=== PATIENT | female | born 1970 | race Caucasian/White ===

== ENCOUNTER → 2016-06-21 | Outpatient (CLI) | payer MEDICARE, MEDICAID ==
--- NOTE | 2016-06-21 19:47 | XA ---
Exam Date: 06/21/16 Patient's Age: 46 HEIGHT: 65.0 in. WEIGHT: 120.0 lbs. INDICATIONS: Back pain, family history of osteoporosis, hypothyroid. FRACTURES: TREATMENTS: Armor (thyroid med) ASSESSMENT: The BMD measured at Femur Total Mean s 0.766 g/cm2 with a T-score of -1.9. This patient is considered osteopenic according to World Health Organization ( WHO) criteria. Bone density is between 10% and 25% below young normal. Fracture risk is moderate. Treatment is advised. The BMD measured at Femur Troch Mean is 0.631 g/cm2 with a T-score of -1.9 is considered moderately low. Fracture risk is moderate. Treatment is advised if there are other risk factors. RESULTS: Site Region Age Classification T-Score BMD AP Spine L1-L4 46.3 Osteopenia -1.2 1.046 g/cm2 Dual Femur Neck Mean 46.3 Osteopenia -1.6 0.822 g/cm2 Dual Femur Troch Mean 46.3 N/A -1.9 0.631 g/cm2 Dual Femur Total Mean 46.3 Osteopenia -1.9 0.766 g/cm2 World Health Organization - Criteria for post-menopausal, women: Normal: T-Score at or above -1 SD Osteopenia: T-Score between -1 and -2.5 SD Osteoporosis: T-Score at or below -2.5 SD RECOMMENDATION: Pharmacologic treatment recommendations & Initiate pharmacologic treatment: - In those with hip or vertebral (clinical or asymptomatic) fractures - In those with T -scores <-2.5 at the femoral neck, total hip, or lumbar spine by DXA - In postmenopausal women and men age 50 and older with low bone mass (T-score between -1.0 and -2.5, osteopenia) at the femoral neck, total hip, or lumbar spine by DXA and a 10-year hip fracture probability >3 % or a 10-year major osteoporosis-related fracture probability >20% based on the [place]-adapted WHO absolute fracture risk model (Fracture Risk Algorithm (FRAX); www. NOF.org and www.shef.ac.uk/FRAX) FOLLOW UP: People with diagnosed cases of osteoporosis or at high risk for fracture should have regular bone mineral density tests. For patients eligible for Medicare, routine testing is allowed once every 2 years. The testing frequency can be increased to 1 year for patients who have rapidly progressing disease, those who are reviewing or discontinuing medial therapy to restore bone mass, or have additional risk factors. People with diagnosed cases of osteoporosis or osteopenia should be regularly tested for bone mineral density. For patient eligible for Medicare, routine testing is allowed once every 2 years. The testing frequency can be increased to 1 year for patients who have rapidly progressing disease, or for those who are receiving medial therapy to restore bone mass. [facility] -- [place] [phone] - FAX: [phone] GRIS
== END ==
LOC: MW.DI 11:00
PROVIDERS: ATTEND Nurse Practitioner Women's Health
DX: M81.0 Age-related osteoporosis without current pathological fracture (principal)
CPT/HCPCS: 77080; 77080-26

== ENCOUNTER 2020-01-29 18:17 | Emergency (ER) | payer OTHER, BC, MEDICARE ==
--- NOTE | 2020-01-29 19:49 | EDM.PDOC ---
ED HPI GENERAL MEDICAL PROBLEM - General Chief Complaint: Upper Extremity Injury/Pain Stated Complaint: LT WRIST INJURY Time Seen by Provider: 01/29/20 19:47 Source of Information: Reports: Patient History Limitations: Reports: No Limitations - History of Present Illness INITIAL COMMENTS - FREE TEXT/NARRATIVE: HISTORY AND PHYSICAL: History of present illness: Patient is a 49-year-old female who presents to the emergency room with complaints of left wrist pain post fall. She states she tripped while at work and fell with an outstretched hand and now has pain to the anterior aspect of the left wrist. She states in April 2019 she did have a fracture which required surgery. She denies hitting her head or having any loss of consciousness. Denies any other extremity involvement. Offers no systemic complaints. Review of systems: As per history of present illness and below otherwise all systems reviewed and negative. Past medical history: As per history of present illness and as reviewed below otherwise noncontributory. Surgical history: As per history of present illness and as reviewed below otherwise noncontributory. Social history: See social history for further information Family history: As per history of present illness and as reviewed below otherwise noncontributory. Physical exam: General: Well developed and well nourished 49-year-old female. Alert and orientated x 3. Nontoxic in appearance and in no acute distress. Vital signs are stable and have been reviewed by me. Nursing notes were reviewed. HEENT: Atraumatic, normocephalic, pupils equal and reactive bilaterally, negative for conjunctival pallor or scleral icterus, mucous membranes moist, trachea midline. No drooling or trismus noted. No meningeal signs. No hot potato voice noted. Lungs: Clear to auscultation, breath sounds equal bilaterally. Normal work of breathing, no accessory muscles used. Heart: S1S2, regular rate and rhythm without overt murmur Abdomen: Soft, nondistended, nontender. Skin: Intact, warm, dry. No lesions or rashes noted. Hematologic: No petechiae or purpra. Mucosa appropriate color and normal nail bed color and refill. Extremities: Pain with palpation of the radial and ulnar aspect of the left wrist. Good flexion and extension of the hand and wrist. Strong radial pulse. Cap refill less than 3 seconds. Otherwise moves all extremities per self without difficulty or deficits, negative for cords or calf pain. Neurovascular unremarkable. Neuro: Awake, alert, oriented. Cranial nerves II through XII unremarkable. Cerebellum unremarkable. Motor and sensory unremarkable throughout. Exam nonfocal. Psychiatric: Mood and affect are appropriate. Normal thought process. Answering questions appropriately. Notes: X-ray shows chronic fractures of the distal radius and ulna with plate and screw fixation. Possible injury to the scapholunate joint with mildly increased interspace. I have spoken with the patient/caregiver and discussed today's findings, in addition to providing specific details for plan of care. Reassessment at the time of disposition demonstrates that the patient is in no acute distress. I did offer to put her in a wrist splint, she states she has a Velcro splint at home that she would prefer to use from her previous surgery. The patient is stable for discharge, counseling was provided and we discussed in great detail signs and symptoms that would prompt them to return to the Emergency Department. Medication, follow up with the orthopedic provider in a few days and supportive care measures were reviewed and discussed. Voices understanding and is agreeable to plan of care. Denies any further questions or concerns at this time. Diagnostics: X-ray Therapeutics: Declines Prescription: Tramadol Impression: Wrist sprain Plan: 1. Rest, ice, elevate the affected extremity. Please wear the splint you have at home as directed. 2. Tylenol and/or Ibuprofen as needed for pain management. Tramadol for moderate to severe pain as needed. 3. Follow up with the Orthopedic provider as we discussed. Return to the ED as needed and as discussed. Definitive disposition and diagnosis as appropriate pending reevaluation and review of above. L wrist Pain Score (Numeric/FACES): 7 - Related Data Allergies Allergy/AdvReac Type Severity Reaction Status Date / Time No Known Allergies Allergy Verified 01/29/20 19:56 Home Meds: Home Meds Potassium 80 meq PO DAILY 11/20/13 [History] Sevelamer Carbonate [Renvela] 800 mg PO TID 11/20/13 [History] Thyroid [[place] Thyroid] 15 mg PO DAILY 11/20/13 [History] calcitrioL [Rocaltrol] 25 mcg PO DAILY 11/20/13 [History] traZODone HCl [Trazodone HCl] 400 mg PO DAILY 05/16/18 [History] traMADol [Ultram] 50 mg PO Q4H PRN #15 tab 01/29/20 [Rx] Past Medical History HEENT History: Reports: None Cardiovascular History: Reports: None Respiratory History: Reports: None Gastrointestinal History: Reports: None Genitourinary History: Reports: None [employer] OPERATOR History: Reports: None Musculoskeletal History: Reports: None Neurological History: Reports: Neuropathy, Peripheral Psychiatric History: Reports: None Endocrine/Metabolic History: Reports: Hypoparathyroidism, Hypothyroidism Hematologic History: Reports: None Immunologic History: Reports: None Oncologic (Cancer) History: Reports: None Dermatologic History: Reports: None - Past Surgical History Head Surgeries/Procedures: Reports: None HEENT Surgical History: Reports: None Cardiovascular Surgical History: Reports: None Respiratory Surgical History: Reports: None GI Surgical History: Reports: None Female Surgical History: Reports: None Endocrine Surgical History: Reports: None Neurological Surgical History: Reports: None Musculoskeletal Surgical History: Reports: None Oncologic Surgical History: Reports: None Dermatological Surgical History: Reports: None Social & Family History - Family History Family Medical History: Noncontributory - Caffeine Use Caffeine Use: Reports: None Review of Systems - Review of Systems Review Of Systems: Comprehensive ROS is negative, except as noted in HPI. ED EXAM, GENERAL - Physical Exam Exam: See Below (See dictation) Course - Vital Signs Last Recorded V/S: Last Vital Signs Temp 97.3 F 01/29/20 19:51 Pulse 75 01/29/20 19:51 Resp 17 01/29/20 19:51 BP 133/80 01/29/20 19:51 Pulse Ox 96 01/29/20 19:51 Departure - Departure Time of Disposition: 20:01 Disposition: Home, Self-Care 01 Clinical Impression: Wrist sprain Qualifiers: Encounter type: initial encounter Laterality: left Qualified Code(s): S63.502A - Unspecified sprain of left wrist, initial encounter - Discharge Information Prescriptions: traMADol [Ultram] 50 mg PO Q4H PRN #15 tab PRN Reason: Pain Instructions: Wrist Splint, Adult, [id number] Referrals: PCP,None [Primary Care Provider] - Forms: ED Department Discharge, ED Return to Work/School Form Additional Instructions: The following information is given to patients seen in the emergency department who are being discharged to home. This information is to outline your options for follow-up care. We provide all patients seen in our emergency department with a follow-up referral. The need for follow-up, as well as the timing and circumstances, are variable depending upon the specifics of your emergency department visit. If you don't have a primary care physician on staff, we will provide you with a referral. We always advise you to contact your personal physician following an emergency department visit to inform them of the circumstance of the visit and for follow-up with them and/or the need for any referrals to a consulting specialist. The emergency department will also refer you to a specialist when appropriate. This referral assures that you have the opportunity for follow-up care with a specialist. All of these measure are taken in an effort to provide you with optimal care, which includes your follow-up. Under all circumstances we always encourage you to contact your private physician who remains a resource for coordinating your care. When calling for follow-up care, please make the office aware that this follow-up is from your recent emergency room visit. If for any reason you are refused follow-up, please contact the [facility] at and asked to speak to the emergency department charge nurse. [facility] [address] [place] [address] [place] [address] Thank you for choosing the [facility] emergency department in [place] for your medical needs today. It was a pleasure caring for you. Today you were seen in the emergency department for wrist pain. 1. Rest, ice, elevate the affected extremity. Please wear the splint you have at home as directed. 2. Tylenol and/or Ibuprofen as needed for pain management. Tramadol for moderate to severe pain as needed. 3. Follow up with the Orthopedic provider as we discussed. Return to the ED as needed and as discussed. Sepsis Event Note (ED) - Focused Exam Vital Signs: Vital Signs Temp Pulse Resp BP Pulse Ox 01/29/20 19:51 97.3 F 75 17 133/80 96
--- NOTE | 2020-01-29 19:55 | CR ---
INDICATION: Injury, fall onto open hand. COMPARISON: 05/16/2018. TECHNIQUE: Three views of the right wrist. FINDINGS: Plate and screw fixation for previously demonstrated distal radius fracture. Chronic ulnar styloid fracture. No definite dislocation. The scaphoid lunate interval appears slightly prominent and more notable than on the prior. No definite acute fracture. Soft tissue swelling about the wrist. No definite perihardware lucency. IMPRESSION: 1. Chronic fractures of the distal radius and ulna with plate and screw fixation of the distal radius fracture. 2. Possible injury to the scapholunate joint with mildly increased interspace. Dictated by Shahbaz Rodriguez MD @ Jan 29 2020 7:48PM (Electronically Signed)
== END 2020-01-29 20:29 | disposition home or self-care (01) ==
LOC: MW.ED 18:17
DX: S63.502A Unspecified sprain of left wrist, initial encounter (principal); G62.9 Polyneuropathy, unspecified; E03.9 Hypothyroidism, unspecified; Z79.899 Other long term (current) drug therapy; W01.0XXA Fall on same level from slipping, tripping and stumbling without subsequent striking against object, initial encounter; Y99.0 Civilian activity done for income or pay
CPT/HCPCS: 73110-26-LT; 73110-LT; 99283

== ENCOUNTER 2021-04-21 08:12 | Day surgery (SDC) | payer BC, MEDICARE ==
[~2021-04-21 08:12] MED LIST: Lactated Ringers 1,000 ML IV SCH; fentaNYL 100 MCG/2 ML SDV ONE; propofoL 50 ML ONE
[2021-04-21] MEDS ORDERED: Lactated Ringers 1,000 ML IV SCH (08:30)
--- NOTE | 2021-04-21 09:06 | PCM.PREANE ---
Preanesthetic Assessment - Procedure Proposed Procedure: EGD, Colonoscopy - Anesthesia/Transfusion/Family Hx Anesthesia History: Prior Anesthesia Without Reaction Other Type of Anesthesia Reaction Comment: states is a "hard IV stick" Family History of Anesthesia Reaction: No Transfusion History: No Prior Transfusion(s) - Review of Systems General: No Symptoms Pulmonary: No Symptoms Cardiovascular: No Symptoms (H/o A-S defect, repaired 1989 no problems since) Gastrointestinal: No Symptoms (GERD well controlled) Neurological: Seizure (h/o sz related to meds last over a year ago not on any anti-sz meds) Other: Reports: Thyroid Problems (Hypothyroid), Depression (Pt has Bipolr d/o) - Physical Assessment NPO Status Date: 04/20/21 NPO Status Time: 21:30 Vital Signs: Last Vital Signs Temp 96.3 F L 04/21/21 08:20 Pulse 88 04/21/21 08:20 Resp 15 04/21/21 08:20 BP 113/75 04/21/21 08:20 Pulse Ox 95 04/21/21 08:20 Height: 5 ft 5 in Weight: 90.265 kg ASA Class: 2 Mental Status: Alert & Oriented x3 Airway Class: Mallampati = 2 Dentition: Reports: Normal Dentition, Dentures Thyro-Mental Finger Breadths: 3 Mouth Opening Finger Breadths: 3 ROM/Head Extension: Full Lungs: Clear to Auscultation, Normal Respiratory Effort Cardiovascular: Regular Rate, Regular Rhythm - Lab Values: Laboratory Last Values Urine HCG, Qual NEGATIVE (NEGATIVE) 04/21/21 08:30 - Allergies Allergies/Adverse Reactions: Allergies Allergy/AdvReac Type Severity Reaction Status Date / Time No Known Allergies Allergy Verified 12/15/20 14:57 - Anesthesia Plan Free Text/Narrative:: Propofol sedation - Acknowledgements Anesthesia Type Planned: General Anesthesia Pt an Appropriate Candidate for the Planned Anesthesia: Yes Alternatives and Risks of Anesthesia Discussed w Pt/Guardian: Yes Pt/Guardian Understands and Agrees with Anesthesia Plan: Yes PreAnesthesia Questionnaire HEENT History: Other HEENT History: glasses, top and bottom denture Cardiovascular History: Reports: Other (See Below) Other Cardiovascular History: "born with murmur", hx atrial septal defect Respiratory History: Reports: None Gastrointestinal History: Reports: GERD Genitourinary History: Reports: Other (See Below) Other Genitourinary History: frequent urination, cyst on right kidney [employer]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 Musculoskeletal History: Reports: Back Pain, Chronic, Fracture, Fibromyalgia, Neck Pain, Chronic Neurological History: Reports: Neuropathy, Peripheral Psychiatric History: Reports: ADD, Anxiety, Bipolar, Depression, Eating Disorders Endocrine/Metabolic History: Reports: Hypothyroidism, Obesity/BMI 30+ Other Endocrine/Metabolic History: "hyperparathyroidism" Hematologic History: Reports: Anemia Immunologic History: Reports: None Oncologic (Cancer) History: Reports: None Dermatologic History: Reports: Eczema - Infectious Disease History Infectious Disease History: Reports: Chicken Pox - Past Surgical History Head Surgeries/Procedures: Reports: None HEENT Surgical History: Reports: Naso-Sinus Surgery Cardiovascular Surgical History: Reports: Other (See Below) Other Cardiovascular Surgeries/Procedures: hx of repair of atrial septal defect at age 18 Respiratory Surgical History: Reports: None GI Surgical History: Reports: EGD Female Surgical History: Reports: Other (See Below) Other Female Surgeries/Procedures: hx diagnostic laparoscopy, breast augmentation and removal of implants Endocrine Surgical History: Reports: None Neurological Surgical History: Reports: None Musculoskeletal Surgical History: Reports: ORIF Other Musculoskeletal Surgeries/Procedures:: ORIF L wrist fx Oncologic Surgical History: Reports: None Dermatological Surgical History: Reports: None - SUBSTANCE USE Tobacco Use Status *Q: Never Tobacco User - HOME MEDS Home Medications: Home Meds Sevelamer Carbonate [Renvela] 800 mg PO TID 11/20/13 [History] Thyroid [[place] Thyroid] 90 mg PO DAILY 11/20/13 [History] calcitrioL [Rocaltrol] 0.25 mcg PO TID 11/20/13 [History] traZODone HCl [Trazodone HCl] 4 - 5 tab PO BEDTIME PRN 05/16/18 [History] Dicyclomine [Bentyl] 10 mg PO QID PRN 12/15/20 [History] Etonogestrel [Nexplanon] 1 implant .ROUTE ONETIME 12/15/20 [History] Gabapentin [Neurontin] 4 tab PO BEDTIME 12/15/20 [History] Lactobacillus Combo No.10 [Probiotic] 2 tab PO BEDTIME 12/15/20 [History] Lisdexamfetamine [Vyvanse] 50 mg PO DAILY 12/15/20 [History] Meclizine HCl 25 mg CHEW TID PRN 12/15/20 [History] Metoclopramide HCl 1 - 2 tab PO DAILY 12/15/20 [History] Mirabegron [Myrbetriq] 25 mg PO DAILY 12/15/20 [History] Tolterodine Tartrate [Detrol LA] 4 mg PO BEDTIME 12/15/20 [History] Zolpidem [Ambien] 10 mg PO BEDTIME 12/15/20 [History] Biotin 5,000 mcg PO DAILY 04/17/21 [History] Calcium Carbonate [Calcium] 2 tab PO BID 04/17/21 [History] Cariprazine HCl [Vraylar] 3 mg PO DAILY 04/17/21 [History] FLUoxetine HCl [Fluoxetine HCl] 40 mg PO DAILY 04/17/21 [History] Lysine HCl [l-Lysine] 1,000 mg PO ASDIRECTED PRN 04/17/21 [History] Magnesium 250 mg PO ASDIRECTED 04/17/21 [History] Potassium Chloride 20 meq PO ASDIRECTED PRN 04/17/21 [History] activated charcoaL [Charcocaps] 4 caplet PO ASDIRECTED PRN 04/17/21 [History] - CURRENT (IN HOUSE) MEDS Current Meds: Current Medications Lactated Ringer's (Ringers, Lactated) 1,000 mls @ 125 mls/hr IV ASDIRECTED [facility] Discontinued Medications Fentanyl (Fentanyl 100 Mcg/2 Ml Sdv) Confirm Administered Dose 100 mcg .ROUTE .STK-MED ONE Stop: 04/21/21 08:13 Lactated Ringer's (Ringers, Lactated) 1,000 mls @ 125 mls/hr IV ASDIRECTED [facility] Propofol (Diprivan 50 Ml) Confirm Administered Dose 50 mls @ as directed .ROUTE .STK-MED ONE Stop: 04/21/21 07:35 Lidocaine HCl (Lidocaine 1% 5 Ml Sdv) Confirm Administered Dose 5 ml .ROUTE .STK-MED ONE Stop: 04/21/21 08:13
--- NOTE | 2021-04-21 11:07 | PCM.POSTAN ---
POST ANESTHESIA ASSESSMENT - MENTAL STATUS Mental Status: Alert, Oriented - VITAL SIGNS Vital Signs: Last Vital Signs Temp 96.3 F L 04/21/21 08:20 Pulse 88 04/21/21 08:20 Resp 15 04/21/21 08:20 BP 113/75 04/21/21 08:20 Pulse Ox 95 04/21/21 08:20 - RESPIRATORY Respiratory Status: Respiratory Rate WNL, Airway Patent, O2 Saturation Stable - CARDIOVASCULAR CV Status: Pulse Rate WNL, Blood Pressure Stable - GASTROINTESTINAL GI Status: No Symptoms - PAIN Pain Score: 0 - POST OP HYDRATION Hydration Status: Adequate & Stable
--- NOTE | 2021-04-21 11:16 | PCM48HPAN ---
Post Anesthesia Note - EVALUATION WITHIN 48HRS OF ANESTHETIC Vital Signs in Normal Range: Yes Patient Participated in Evaluation: Yes Respiratory Function Stable: Yes Airway Patent: Yes Cardiovascular Function Stable: Yes Hydration Status Stable: Yes Pain Control Satisfactory: Yes Nausea and Vomiting Control Satisfactory: Yes Mental Status Recovered: Yes Vital Signs: Last Vital Signs Temp 98.1 F 04/21/21 11:02 Pulse 65 04/21/21 11:12 Resp 12 04/21/21 11:12 BP 101/68 04/21/21 11:12 Pulse Ox 100 04/21/21 11:12 - COMMENTS/OBSERVATIONS Free Text/Narrative:: Pt doing well post-op. VSS. No apparent anesthetic complications. Dr. Kory Wing
--- NOTE | 2021-04-21 11:19 | PCM.OPNOTE ---
- General Post-Op/Procedure Note Date of Surgery/Procedure: 04/21/21 Operative Procedure(s): EGD with Biopsies. Colonoscopy with random Biopsies Findings: Gastritis Irregular GE Junction Diverticulosis Dictation number [id number] Pre Op Diagnosis: GERD. loose stools Post-Op Diagnosis: Gastritis. Irregular GE Junction. Diverticulosis Anesthesia Technique: [facility] Primary Surgeon: Yuri Ivy Pathology: Random colon biopsies EGD biopsies Complications: None Condition: Good
--- NOTE | 2021-04-21 12:52 | OR ---
SURGEON: MERCEDES EUCEDA MD DATE OF PROCEDURE: 04/21/2021 PREOPERATIVE DIAGNOSES: 1. Gastroesophageal reflux disease. 2. Loose stools. 3. Gastritis. 4. Slightly irregular GE junction. 5. Diverticulosis. PROCEDURE PERFORMED: Colonoscopy with random biopsies and esophagogastroduodenoscopy with biopsies. PRIMARY SURGEON: Mercedes Euceda MD ANESTHESIA: With anesthesia team. EXTENT OF EGD: To the duodenum. EXTENT OF COLONOSCOPY: To the cecum. BOWEL PREP: Good. LIMITATIONS: None. REASON FOR PROCEDURE: The patient is a pleasant 51-year-old female. She says she thinks she had stomach ulcers in the past. She does take medications for heartburn. She says with the medication, this deals with the heartburn well. She says she had an EGD 7 to 8 years ago that was normal. The patient also is having some loose stools. She says she goes between constipation and loose stools. She says she has loose stools when she binge eats. She has had bulimia since she was 13 years old. She still has it and binges and purges about every 4 days. Loose stools seem to correlate with bingeing and purging. She denies any blood in her stools. PROCEDURE IN DETAIL: Physical examination was performed. The major risks and benefits associated with the procedure were explained to the patient in detail. The patient verbalized understanding and agreement of the same. The patient was then connected to the appropriate monitoring devices and IV started. EKG, pulse, pulse oximetry, blood pressure, and capnography were monitored throughout the entire procedure. Continuous oxygen and sedation were provided by the anesthesiologist. The patient was placed in left lateral decubitus position. Sedation was began. After adequate sedation was achieved, upper endoscope was advanced under direct visualization without difficulty in the upper GI tract. The anatomy and mucosa of the esophagus, GE junction, stomach, pylorus, and duodenum were inspected. Duodenum appeared normal. Scope was brought up to the stomach. Both retrograde and antegrade views of the stomach were done. The patient did have some gastritis with slightly mosaic pattern to the mucosa. I did do biopsies at the antrum and pylorus area to check for H pylori. Also did some random biopsies of the stomach. Scope was brought to the GE junction. GE junction was approximately 38 cm from her incisors. GE junction was slightly irregular. It looks like maybe she might have had some esophagitis in the past. I did do some random biopsies at GE junction. Scope was brought to the stomach. Stomach was de-insufflated. Scope was brought to the esophagus. Esophagus appeared normal. Scope was completely removed and the procedure was terminated. Scope was changed. Now, a rectal exam was performed. No rectal masses or polyps felt. Now, a well- lubricated Olympus colonoscope was inserted in the rectum and advanced under direct visualization to the level of the cecum. Cecum was identified by both visual and anatomic landmarks. Photographs were taken of the cecal cap. Scope was then slowly withdrawn in a circular fashion looking at the color, texture, anatomy, and integrity of mucosa from the cecum to the anal canal. The patient had a little bit of retained stool which was suctioned and irrigated out for an excellent look at the mucosa. Because of her complaint of loose stools, I did do random biopsies throughout the entirety of the colon. The patient did have some scattered diverticulosis throughout the sigmoid colon. Scope was retroflexed in the rectum. She did have some noninflamed internal hemorrhoids. Scope was completely removed and procedure was terminated. ENDOSCOPIC DIAGNOSES: 1. Gastritis. 2. Slightly irregular GE junction. 3. Diverticulosis. RECOMMENDATION: Followup colonoscopy should be in 10 years, sooner if she develops signs and symptoms such as change in bowel habits or blood in stool. She should follow up in the clinic to go over her EGD results. SONYA / JAS /[id number]
== END 2021-04-21 11:40 | disposition home or self-care (01) ==
LOC: MW.SDS 08:12
PROVIDERS: ATTEND Surgery
DX: K57.30 Diverticulosis of large intestine without perforation or abscess without bleeding (principal); K21.9 Gastro-esophageal reflux disease without esophagitis; K22.89 Other specified disease of esophagus; K64.8 Other hemorrhoids; K29.50 Unspecified chronic gastritis without bleeding; K31.89 Other diseases of stomach and duodenum; F41.9 Anxiety disorder, unspecified; F32.A Depression, unspecified; E66.9 Obesity, unspecified; E03.9 Hypothyroidism, unspecified; N25.81 Secondary hyperparathyroidism of renal origin; M81.0 Age-related osteoporosis without current pathological fracture; G62.9 Polyneuropathy, unspecified; G43.909 Migraine, unspecified, not intractable, without status migrainosus; E55.9 Vitamin D deficiency, unspecified; Z79.899 Other long term (current) drug therapy; Z98.890 Other specified postprocedural states
CPT/HCPCS: 43239; 45380; 81025; J2704; J3010; J7120; 00813

== ENCOUNTER 2022-08-22 13:59 | Emergency (ER) | payer BC, MEDICARE ==
[2022-08-22 15:47] LABS: BASOPHILS PERCENT AUTO 0.4 % (0.0-1.5); EOSINOPHILS PERCENT AUTO 0.6 % (0.0-7.0); HEMATOCRIT 34.5 % (36.0-46.0); HEMOGLOBIN 11.8 g/dL (12.0-16.0); LYMPHOCYTES ABSOLUTE AUTO 1.3 K/uL (0.6-2.4); LYMPHOCYTES PERCENT AUTO 23.5 % (16.0-40.0); MEAN CORPUSCULAR HEMOGLOBIN 30.7 pg (27.0-32.0); MEAN CORPUSCULAR HGB CONC 34.2 g/dL (31.0-37.0); MEAN CORPUSCULAR VOLUME 89.8 fL (80.0-98.0); MONOCYTES ABSOLUTE AUTO 0.4 K/uL (0.0-0.8); MONOCYTES PERCENT AUTO 7.3 % (0.0-15.0); NEUTROPHILS ABSOLUTE AUTO 3.6 K/uL (1.4-5.7); NEUTROPHILS PERCENT AUTO 68.2 % (48.0-80.0); PLATELET COUNT,PLT 309 K/uL (150-400); RED BLOOD CELL COUNT 3.84 M/uL (4.30-5.90); WHITE BLOOD CELL COUNT,WBC 5.33 K/uL (4.0-11.0)
[2022-08-22 16:22] LABS: A/G RATIO 0.9 (0.9-1.6); ALBUMIN 3.8 g/dL (3.4-5.0); BILIRUBIN TOTAL 0.4 mg/dL (0.2-1.0); CALCIUM 9.7 mg/dL (8.5-10.1); EST CRCL DRUG DOSING (CG) 29.61 mL/min; POTASSIUM,K 4.1 mmol/L (3.5-5.1)
[2022-08-22] MEDS ORDERED: Lactated Ringers 1,000 ML IV SCH ×2 (17:15→18:00)
[2022-08-22 19:54] LABS: APPEARANCE,URINE CLEAR; COLOR,URINE YELLOW; GLUCOSE,URINE NEGATIVE (NEGATIVE); KETONES,URINE 40 mg/dL (NEGATIVE); LEUKOCYTE ESTERASE,URINE NEGATIVE (NEGATIVE); NITRITE,URINE NEGATIVE (NEGATIVE); OCCULT BLOOD,URINE NEGATIVE (NEGATIVE); PH,URINE 5.5 (5.0-8.0); PROTEIN,URINE NEGATIVE (NEGATIVE); UROBILINOGEN,URINE 0.2 EU/dL (<2.0)
[2022-08-22 19:55] LABS: BILIRUBIN,URINE SMALL (NEGATIVE)
== END 2022-08-22 20:30 | disposition home or self-care (01) ==
LOC: MW.ED 13:59
DX: E86.0 Dehydration (principal); E03.9 Hypothyroidism, unspecified; E66.9 Obesity, unspecified; Z68.31 Body mass index [BMI] 31.0-31.9, adult; Z79.899 Other long term (current) drug therapy
CPT/HCPCS: 36415; 74176; 80053; 81003; 83690; 83735; 85025; 85610; 93005; 96360; 96361; 99284; J7120; 93010

== ENCOUNTER 2022-11-11 12:30 | Emergency (ER) | payer BC, MEDICARE | END 2022-11-11 13:24 | disposition left against medical advice (07) | LOC: MW.ED 12:30 | DX: G89.29 Other chronic pain (principal); R10.9 Unspecified abdominal pain; F41.9 Anxiety disorder, unspecified; N18.9 Chronic kidney disease, unspecified; K21.9 Gastro-esophageal reflux disease without esophagitis; E03.9 Hypothyroidism, unspecified; E66.9 Obesity, unspecified; Z79.899 Other long term (current) drug therapy | CPT/HCPCS: 99283; 99284 ==